=== PATIENT | female | born 2005 | race Caucasian/White ===

== ENCOUNTER 2025-10-20 10:26 | Emergency (ER) | payer MEDICAID, SELFPAY ==
[2025-10-20 10:35] VITALS: BP 103/70; PULSE 88; RESP 18; TEMP 36.8; O2SAT 100
[2025-10-20 10:50] LABS: EDSTREPNEGPOS1 Negative (Negative)
--- NOTE | 2025-10-20 11:06 | ED_ITS ---
HPI - URI/Sore Throat General Chief Complaint: Upper Respiratory Infection Stated Complaint: throat Time Seen by Provider: 10/20/25 10:50 Source: patient and RN notes reviewed Mode of arrival: ambulatory Limitations: no limitations History of Present Illness HPI Narrative: 19-year-old female patient presents to the [facility] complaining of sore throat for 3 days. Patient reports pain with swallowing. Patient has any fevers, body aches, chills, nausea vomiting, diarrhea, chest pain difficulty breathing, dysphasia, locked jaw, or any other upper respiratory symptoms, or any other symptoms. Patient said her symptoms got worse today. She has tried ibuprofen without relief. Patient has a history of hypertension depression and anxiety. Related Data Home Medications ?Medication ?Instructions ?Recorded ?Confirmed ?Last Taken ?Type aripiprazole 2 mg tablet mg 10/20/25 Unknown History drospirenone (contraceptive) 4 mg 10/20/25 Unknown H istory (28) tablet (Slynd) lisinopril 10 mg tablet mg 10/20/25 Unknown History paroxetine HCl 20 mg tablet mg PO 10/20/25 Unknown Hi story Allergies Allergy/AdvReac Type Severity Reaction Status Date / Time No Known Allergies Allergy Verified 10/20/25 10:43 Review of Systems Review of Systems: CONSTITUTIONAL: Denies fever, chills, or sweats. EYES: Denies visual changes, redness, or discharge. ENT: Denies rhinorrhea, congestion, dysphagia, difficulty clearing secretions, trismus, or otalgia. Positive for sore throat. CARDIOVASCULAR: Denies chest pain, palpitations, or edema. RESPIRATORY: Denies cough or dyspnea. GASTROINTESTINAL: Denies abdominal pain, nausea, vomiting, or diarrhea. GENITOURINARY: Denies dysuria or hematuria. SKIN: Denies rash or itching. MUSCULOSKELETAL: Denies back pain, joint pain, or myalgia. NEUROLOGIC: Denies headache, numbness, or weakness. PSYCHIATRIC: Denies anxiety or depression. All other systems reviewed are negative, except as documented in HPI. PMFSH Comments At the time of my signature, I reviewed and agree with the nursing past medical, surgical, social, and family history. There is no relevant family history pertinent to the patient complaint. Exam Narrative: GENERAL: This is a well-nourished, well-developed adult, in no apparent distress. They are non ill-appearing, nontoxic appearing. HEAD: normocephalic, atraumatic. EYES: Sclera clear/white. Conjunctiva normal. Vision is grossly intact. Extraocular movements intact EARS: External ears normal, auditory canals clear and without drainage, TMs normal without perforation. Hearing grossly intact. NOSE: External nose normal with no obvious nasal discharge, nasal turbinates without redness, no rhinorrhea. THROAT: Mucous membranes moist, posterior pharynx erythematous red and patchy. Tonsils 3+ erythematous with exudate. Uvula midline. No trismus NECK: Neck supple, moderate tender cervical lymphadenopathy, no masses or thyromegaly. CARDIOVASCULAR: Regular rate and rhythm without murmurs, gallops, or rubs. RESPIRATORY: Clear to auscultation. Breath sounds equal bilaterally. No wheezes, rales, or rhonchi. SKIN: warm, Dry, intact with no suspicious lesions or rash, good texture and turgor. NEURO: awake, alert, and oriented to person, place and time. There were no obvious focal neurologic abnormalities. EXTREMITIES: No joint tenderness, effusion, or edema noted. BACK: Nontender without deformity. Course Course Emergency Course: Portions of this record may have been created with voice recognition software Level of Care: Express Care Visit Vital Signs Vital signs: Vital Signs Temperature 98.3 F 10/20/25 10:35 Pulse Rate 88 10/20/25 10:35 Respiratory Rate 18 10/20/25 10:35 Blood Pressure 103/70 10/20/25 10:35 Pulse Oximetry 100 10/20/25 10:35 Oxygen Delivery Room Air 10/20/25 10:35 Temperature 98.3 F 10/20/25 10:35 Pulse Rate 88 10/20/25 10:35 Respiratory Rate 18 10/20/25 10:35 Blood Pressure 103/70 10/20/25 10:35 Pulse Oximetry 100 10/20/25 10:35 Oxygen Delivery Room Air 10/20/25 10:35 Reviewed MDM - URI/Sore Throat MDM Narrative Medical decision making narrative: Rapid strep negative. A throat culture is pending. Centor score of 4. There is clinical suspicion for strep pharyngitis however it may be viral. Through shared decision making with patient discussed waiting for culture prior to antibiotic therapy ago and starting present to therapy for strep throat. Patient like to start antibiotics. Prescription amoxicillin sent to pharmacy. Advised patient will be contacted if the culture is negative to stop the antibiotics. Will give her a 1 time dose of dexamethasone to help with the throat pain and swelling. Discussed physical exam findings. Advised supportive measures and signs/symptoms to go to the ER. Pt is appropriate for outpt treatment and f/u. Differential Diagnosis Differential diagnosis: Likely upper respiratory infection, viral infection and pharyngitis Lab Data Attestation: I reviewed the patient's lab results. Labs: Lab Results 10/20/25 Range/Units 10:48 POC Grp A Strep Screen Negative (Negative) Critical Care Time Critical Care Time Critical Care Time: No Discharge Plan Discharge Clinical Impression: Pharyngitis Qualifiers: Pharyngitis/tonsillitis etiology: unspecified etiology Qualified Code(s): J02.9 - Acute pharyngitis, unspecified Patient Disposition: Home Condition: Stable Instructions: Antibiotic Form, Pharyngitis (ED) Additional Instructions: Rapid strep is negative today. A throat culture is pending if it is positive for strep you will be contacted. Please take the amoxicillin as prescribed until gone. Take dexamethasone as directed. ?You will be contagious for 24 hours after starting the medication. ?After 24 hours on antibiotics throw tooth brush away and start using a new one. Wash your sheets and cup/water bottle that is used daily. Do not share drinks. Take Tylenol or Ibuprofen as needed for pain or fevers. Follow instructions on the bottle. ?Rest and stay hydrated. ?Follow up with your PCP in 3 days if symptoms are not improving. ?Go to the ER immediately if you develop worsening symptoms such as shortness of breath, difficulty swallowing, unable to eat or drink, locked jaw, vomiting, difficulty breathing, or any serious concerns. Patient Language: Czech Prescriptions: New amoxicillin 500 mg tablet 500 mg PO Q12H 10 Days Qty: 20 0RF dexamethasone 2 mg tablet 10 mg PO ONCE 1 Days Qty: 5 0RF No Action paroxetine HCl 20 mg tablet PO lisinopril 10 mg tablet aripiprazole 2 mg tablet Slynd 4 mg (28) tablet Follow-up/Referrals: PHYSICIAN,CRIMINAL JUSTICE INSTRUCTOR [Primary Care Provider, Internal Medicine] Time of Disposition: 10:59
== END 2025-10-20 11:03 | disposition home or self-care (01) ==
DX: J02.9 Acute pharyngitis, unspecified (principal); I10 Essential (primary) hypertension; F41.9 Anxiety disorder, unspecified; F32.A Depression, unspecified
CPT/HCPCS: 87081; 87880; 99203; G0463

== ENCOUNTER 2025-11-10 15:17 | Emergency (ER) | payer OTHER, SELFPAY ==
--- OUTSIDE RECORDS SUMMARY | 2025-11-10 15:19 | XMS_ITS | Encounter Summary ---
Author Organization [facility] Address [address] [place] [address] Care Team Providers Care Social Media Campaign Manager Name Role Phone Ca Smalls MD Primary Care Provider [phone] Reason for Visit * Reason Comments Refill Request Encounter Details Date Type Department Care Team ([facility] Contact Info) Description 10/21/2021 Refill [facility] [place] at [address] [address] Yoly Nguyễn MD [address] [place] [id number] Refill Request Social History Tobacco Use Types Packs/Day Years Used Date Smoking Tobacco: Passive Smo ke Exposure - Never Smoker Smokeless Tobacco: Never Alcohol Use Standard Drinks/Week Comments No 0 (1 standard drink = 0.6 oz pur e alcohol) Comments No Sex and Gender Information Value Date Recorded Sex Assigned at Not on file Legal Sex Female 5:46 AM PORTFOLIO MGR Gender Identity Not on file Sexual Orientation Not on file documented as of this encounter Plan of Treatment Upcoming Encounters Date Type Department Care Team ([facility] Contact Info) Description 02/27/2026 10:00 AM CDT Appointment [facility] at [address] [address] Dneise Ahumada MD [facility] [place] [address] 02/27/2026 10:00 AM CDT Appointment [facility] at [address] [place] [address] documented as of this encounter Visit Diagnoses Not on filedocumented in this encounter Care Teams Social Media Campaign Manager Relationship Specialty Start Date End Date Ca Smalls MD 4 [facility] [address] [address] PCP - General 12/06/09 documented as of this encounter
--- OUTSIDE RECORDS SUMMARY | 2025-11-10 15:19 | XMS_ITS | Clinical Summary ---
Author Organization [facility] Address [address] [place] [address] Phone Care Team Providers Care Turnaround Engineer Name Role Phone Ca Smalls MD Primary Care Provider [phone] Allergies No known active allergies Medications triamcinolone (KENALOG) 0.1 % Cream Apply 1 Tube 3 times daily. Apply thin film to affected area(s) twice daily until healed. 1 Tube 0 6 Active ATAZANAVIR SULFATE PO Take by mouth. Acti ve albuterol 108 (90 Base) MCG/ACT Aerosol Solution take 2 Puffs by inhalation every 6 hours as needed for Cough. 6.7 g 1 Active Social History Tobacco Use Types Packs/Day Years Used Date Smoking Tobacco: Passive Smo ke Exposure - Never Smoker Smokeless Tobacco: Never Alcohol Use Standard Drinks/Week Comments Never 0 (1 standard drink = 0.6 oz pur e alcohol) Sexually Active Control Partners Comments Yes Comments No Sex and Gender Information Value Date Recorded Sex Assigned at Not on file Legal Sex Female 9:51 PM CDT Gender Identity Not on file Sexual Orientation Not on file Last Filed Vital Signs Vital Sign Reading Time Taken Comments Blood Pressure 117/69 08/13/2024 8:28 PM CDT Pulse 71 08/13/2024 8:28 PM CDT Temperature 37.1 C (98.8 F) 08/13/2024 8:28 PM CDT Respiratory Rate 18 08/13/2024 8:28 PM CDT Oxygen Saturation 100% 08/13/2024 8:28 PM CDT Inhaled Oxygen Concentration - - Weight 46.7 kg (103 lb) 08/13/2024 8:28 PM CDT Height 154.9 cm (5' 1) 08/13/2024 8:28 PM CDT Body Mass Index 19.46 08/13/2024 8:28 PM CDT Plan of Treatment Health Maintenance Due Date Last Done Comments Hepatitis C Virus (HCV) Screening 2005 Human Papillomavirus (HPV) Immunization (3 - Risk 3-dose series) 01/06/2021 09/05/2020, 09/03/2017 Meningococcal B Immunization (1 of 2 - Standard) 2021 Influenza Immunization (#1) 07/23/202508/22, 11/19/2016, 08/04/2012, Additional history exists SARS-COV-2 Immunization ( - 2024- season) 2025 Respiratory Syncytial Virus (RSV) Immunization (Adult) (1 - 1-dose 75+ series) 2080 Hepatitis B Immunization Completed 006, 03/25/2006, 01/11/2006, Additional history exists Pneumococcal Immunization Combined Aged Out 02/07/2007, 06/07/2006, 03/25/2006, Additional history exists No longer eligible based on patient's age to complete this topic Hepatitis A Immunization Discontinued 11/17/2007, 04/23 Measles Mumps Rubella (MMR) Immunization Discontinued 07/23/2011, 11/08/2006 Polio (IPV) Immunization Discontinued 011, 06/07/2006, 03/25/2006, Additional history exists Varicella Immunization Completed 07/23/2011, 2005 DTaP/Tdap/Td Immunization Discontinued 2016, 07/23/2011, 02/07/2007, Additional history exists TdaP Immunization Completed 09/03/2017 Meningococcal Immunization (ACWY) Completed 01/01/2022, 09/03/2017 Rotavirus Immunization Aged Out No lo nger eligible based on patient's age to complete this topic Insurance MEDICAID [employer] Care Teams Turnaround Engineer Relationship Specialty Start Date End Date Ca Samlls MD 4 [facility] [address] [address] PCP - General Pediatrics 12/09/18
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
--- OUTSIDE RECORDS SUMMARY | 2025-11-10 15:19 | XMS_ITS | Clinical Summary ---
Author Organization [facility] [address] [facility] [facility] l[address] Address [address] [address] Care Team Providers Care Custom Ski Maker Name Role Phone Ca Smalls MD Primary Care Provider [phone] Allergies No known active allergies Medications lisinopriL (PRINIVIL,ZESTRI L) 10 mg tablet Take 10 mg by mouth daily 12/09/2021 Active drospirenone (SLYND ORAL) Take by mouth Active dicyclomine (BENTYL) 20 mg tablet Take 1 tablet (20 mg total) by mouth 2 (two) times a day 20 tablet 12/15/2023 Active Active Problems No known active problems Medical History Medical History Date Comments Bicuspid aortic valve Social History Tobacco Use Types Packs/Day Years Used Date Smoking Tobacco: Never Smokeless Tobacco: Never Tobacco Cessation:Counseling Given: Not Answered Alcohol Use Standard Drinks/Week Comments Not Currently 0 (1 standard drink = 0.6 oz pur e alcohol) Personal Safety Answer Date Recorded Have you ever been in or are you currently in a harmful physical or emotional relationship or is someone making you feel afraid or unsafe? Denies 06/21/2025 Comments No Sex and Gender Information Value Date Recorded Sex Assigned at Not on file Legal Sex Female 6:14 PM WORKPLACE TRAINER AND ASSESSOR Gender Identity Not on file Sexual Orientation Not on file Last Filed Vital Signs Vital Sign Reading Time Taken Comments Blood Pressure 97/63 06/21/2025 2:57 PM CDT Pulse 93 06/21/2025 2:57 PM CDT Temperature 36.8 C (98.2 F) 06/21/2025 2:57 PM CDT Respiratory Rate 18 06/21/2025 2:57 PM CDT Oxygen Saturation 98% 06/21/2025 2:57 PM CDT Inhaled Oxygen Concentration - - Weight 47.6 kg (105 lb) 06/21/2025 2:57 PM CDT Height 154.9 cm (5' 1) 06/21/2025 2:57 PM CDT Body Mass Index 19.84 06/21/2025 2:57 PM CDT Plan of Treatment Health Maintenance Due Date Last Done Comments Depression Screening 2005 Hepatitis C Screening 2005 Meningococcal B Vaccine (1 o f 2 - Standard) 2021 Regular Well Visit/Exam 18-64 2023 Influenza Vaccine (#1) 2025 , 11/19/2016, 08/04/2012, Additional history exists DTaP/Tdap/Td Vaccine (7 - Td or Tdap) 09/03/2027 09/03/2017, 07/23/2011, 02/07/2007, Additional history exists Hepatitis B Screening Completed 06/07/2006 , 03/25/2006, 01/11/2006, Additional history exists Pneumococcal vaccine <65 Completed 007, 06/07/2006, 03/25/2006, Additional history exists Varicella Vaccines Completed 07/23/2011, 11/08/2006 HPV Vaccines Completed 09/05/2020, 09/03/2017 Meningococcal Vaccine Completed 01/01/2022, 017 Insurance /[place] [address] [facility] [place] [address] [facility] Care Teams Custom Ski Maker Relationship Specialty Start Date End Date Ca Smalls MD PCP - General 04/28/21
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
[2025-11-10 15:29] VITALS: BP 87/53; PULSE 94; RESP 20; TEMP 37.2; O2SAT 100
--- NOTE | 2025-11-10 16:00 | ED_ITS ---
HPI - URI/Sore Throat General Chief Complaint: Upper Respiratory Infection Stated Complaint: No Smell or Taste/Cough Time Seen by Provider: 11/10/25 16:00 Source: patient, RN notes reviewed and old records reviewed Mode of arrival: ambulatory Limitations: no limitations History of Present Illness HPI Narrative: 20 year old female dry cough headache and generalized aches since yesterday, reports that she can't taste or smell either.. Patient reports that she was exposed to someone with viral symptoms 3-4 days ago and she has not been tested. Patient reports that she has not had a fever or chills has had to blow nose frequently. Patient has not taken any OTC medications for her symptoms. Patient states that she takes Lisinopril and it does make her blood pressure low, denies any dizziness. MD elicited complaint: cough and other (headaches and generalized body aches) Onset (ago): day(s) (since yesterday) Pain scale (0-10): 4 Able to tolerate fluids by mouth: Yes Treatments prior to arrival: none Related Data Home Medications ?Medication ?Instructions ?Recorded ?Confirmed ?Last Taken ?Type aripiprazole 2 mg tablet mg 10/20/25 Unknown History drospirenone (contraceptive) 4 mg 10/20/25 Unknown H istory (28) tablet (Slynd) lisinopril 10 mg tablet mg 10/20/25 Unknown History paroxetine HCl 20 mg tablet mg PO 10/20/25 Unknown Hi story Allergies Allergy/AdvReac Type Severity Reaction Status Date / Time No Known Allergies Allergy Verified 11/10/25 15:39 Review of Systems Review of Systems: CONSTITUTIONAL reports malaise, no chills, sweats, or fever. EYES: Denies visual changes, redness, or discharge. ENT: Reports rhinorrhea, congestion, sinus pain, no otalgia and no sore throat. CARDIOVASCULAR: Denies chest pain, palpitations, or edema. RESPIRATORY: Reports dry cough.? Denies dyspnea. GASTROINTESTINAL: Denies abdominal pain, nausea, vomiting, diarrhea SKIN: Denies rash or itching. MUSCULOSKELETAL: reports generalized body aches NEUROLOGIC:positive for headache. All systems reviewed & are unremarkable except as noted in HPI and below PMFSH Past Medical History Medical History (Updated 11/12/25 @ 12:38 by Lucia Ortiz APRN) Depression History of heart valve abnormality Surgical History Surgical History (Updated 11/12/25 @ 12:38 by Lucia Ortiz APRN) No history of previous surgery Social History Social History (Updated 11/12/25 @ 12:39 by Lucia Ortiz APRN) Smoking status: Never smoker Alcohol intake: never Substance use type: does not use Living arrangements: with family Gender identity (if verbalized by the patient): Female Comments At time of signature, agree with nursing past medical, surgical, social and family history. There is no relevant family history pertinent to the presenting complaint Exam Narrative: GENERAL: Well-appearing, well-nourished, and in no acute distress. HEAD: Normocephalic EYES: PERRLA, conjunctivae clear ENT: Nares clear, turbinates edematous and erythematous, clear discharge. Mucous membranes moist. TM pearly matthews with dull light reflex bilaterally; no tragal tenderness. Oropharynx erythematous without lesions. Tonsils not enlarged and without exudate, no drooling, no hoarseness, no trismus, uvula midline.post nasal drainage noted NECK: Supple. No lymphadenopathy CHEST: Clear to auscultation, breath sounds equal. No wheezing, rhonchi, rales, or stridor. No respiratory distress, speaks in full sentences. dry cough noted SAO2 100% on room air HEART: Regular rate and rhythm. No murmur heard. SKIN: Warm, dry, no rash. NEURO: Alert and oriented x3. PSYCH: Normal mood and affect Course Course Level of Care: Express Care Visit Vital Signs Vital signs: Vital Signs Temperature 37.2 C 11/10/25 15:29 Pulse Rate 94 11/10/25 15:29 Respiratory Rate 20 11/10/25 15:29 Blood Pressure 87/53 L 11/10/25 15:29 Pulse Oximetry 100 11/10/25 15:29 Oxygen Delivery Room Air 11/10/25 15:29 Temperature 37.2 C 11/10/25 15:29 Pulse Rate 94 11/10/25 15:29 Respiratory Rate 20 11/10/25 15:29 Blood Pressure 87/53 L 11/10/25 15:29 Pulse Oximetry 100 11/10/25 15:29 Oxygen Delivery Room Air 11/10/25 15:29 reviewed MDM MDM Narrative Medical decision making narrative: Patient has cough and some nasal congestion has tested negative for COVID, FLU and Strep today in clinic. Patient is appropriate for outpatient care and follow up. Anticipatory guidance and reasons to seek care in the ED reviewed with understanding voiced. Differential Diagnosis Differential Diagnosis: Differential diagnostic considerations for upper respiratory infection include upper respiratory infection, croup, otitis media, sinusitis, viral infection, bronchitis, influenza, pharyngitis, strep, uvulitis.? Lab Data MDM Lab Attestation statement: I personally reviewed the patient's lab results. Lab results narrative: Influenza A& B negative, COVID antigen negative strep screen negative, culture sent Labs: Lab Results 11/10/25 Range/Units 16:22 POC Influenza A Ag Negative (Negative) POC Influenza B Ag Negative (Negative) POC SARS CoV-2 Ag Negative (Negative) POC Grp A Strep Screen Negative (Negative) reviewed Critical Care Time Critical Care Time Critical Care Time: No Discharge Plan Discharge Clinical Impression: Upper respiratory infection Qualifiers: URI type: unspecified URI Qualified Code(s): J06.9 - Acute upper respiratory infection, unspecified Patient Disposition: Home Condition: Stable Instructions: Upper Respiratory Infection (ED), Acute Cough (ED) Additional Instructions: Increase fluids especially juices and water [id number] cough and cold medicine of your choice for your symptoms Flonase nasal spray daily Medrol dose pack heat to the face 20-30 minutes 4-6 times a day for pain Salt water gargles, throat lozenges or throat sprays as desired all testing negative with strep culture sent If your symptoms persist, change or worsen significantly before you can contact your personal physician then please, without delay, go to the emergency department for further evaluation. Follow-up with PCP in 7-10 days or sooner if needed Patient Language: Urdu Prescriptions: New fluticasone propionate [Flonase Allergy Relief] 50 mcg/actuation spray,suspension 1 spray intranasal DAILY Qty: 16 0RF Rx Instructions: administer into each nostril methylprednisolone [Medrol (Renzo)] 4 mg tablets,dose pack See Rx Instructions .ROUTE .COMPLEX Qty: 21 0RF Rx Instructions: orally per package directions No Action paroxetine HCl 20 mg tablet PO lisinopril 10 mg tablet aripiprazole 2 mg tablet Slynd 4 mg (28) tablet amoxicillin 500 mg tablet 500 mg PO Q12H 10 Days Qty: 20 0RF dexamethasone 2 mg tablet 10 mg PO ONCE 1 Days Qty: 5 0RF Follow-up/Referrals: UNKNOWN,DOCTOR [Primary Care Provider] Time of Disposition: 16:24 Quality Carlos Coma Scale Eyes: Open Verbal: Oriented and Alert Motor: Follows Commands [place] Coma Total Score: 15
[2025-11-10 16:24] LABS: EDCOVIDSCREEN Negative (Negative); EDINFLUASCREEN Negative (Negative); EDINFLUBSCREEN Negative (Negative); EDSTREPNEGPOS1 Negative (Negative)
== END 2025-11-10 16:27 | disposition home or self-care (01) ==
PROVIDERS: Emergency Provider Registered Nurse
DX: J06.9 Acute upper respiratory infection, unspecified (principal); Z20.822 Contact with and (suspected) exposure to COVID-19; F32.A Depression, unspecified
CPT/HCPCS: 87081; 87426; 87804; 87880; 99213; G0463